=== PATIENT | female | born 1995 | race Two or more races ===

== ENCOUNTER 2016-08-22 16:25 | Emergency (ER) | payer BC ==
[2016-08-22 17:10] VITALS: BP 129/90
--- NOTE | 2016-08-22 17:32 | UC ---
Complaint Female HPI - HPI Summary HPI Summary: is here tonight seeking rx for bcp so when she goes on vacation she will not get her period. - History Of Current Complaint Chief Complaint: UCMedRefill Stated Complaint: CONTROL Time Seen by Provider: 08/22/16 17:14 Hx Obtained From: Patient Hx Last Menstrual Period: June ?: No Severity Currently: None Associated Signs And Symptoms: Positive: Negative - Allergies/Home Medications Allergies/Adverse Reactions: Allergies Allergy/AdvReac Type Severity Reaction Status Date / Time [place] Allergy Intermediate Rash Verified 01/24/14 10:11 Home Medications: Home Medications Amphetamine-Dextroamphetamine [Adderall 10 mg-] 08/22/16 [History] Bupropion XL (NF) [Wellbutrin XL (NF)] 300 mg PO DAILY 08/22/16 [History Confirmed 08/22/16] PMH/Surg Hx/FS Hx/Imm Hx Previously Healthy: Yes - Surgical History Surgical History: None - Family History Known Family History: Positive: None Family History: no reported cardio vascular issues in family lineage - Social History Occupation: Student Lives: With Family Alcohol Use: Weekly Substance Use Type: None Smoking Status (MU): Never Smoked Tobacco Review of Systems Constitutional: Negative Skin: Negative Eyes: Negative ENT: Negative Respiratory: Negative Cardiovascular: Negative Gastrointestinal: Negative Genitourinary: Negative Motor: Negative Neurovascular: Negative Musculoskeletal: Negative Neurological: Negative Psychological: Negative All Other Systems Reviewed And Are Negative: Yes Physical Exam Triage Information Reviewed: Yes Appearance: Well-Appearing, No Pain Distress, Well-Nourished Vital Signs: Initial Vital Signs Temp 98.2 F 08/22/16 17:04 Pulse 118 08/22/16 17:04 Resp 16 08/22/16 17:04 BP 129/90 08/22/16 17:04 Pulse Ox 100 08/22/16 17:04 Vital Signs Reviewed: Yes Eye Exam: Normal Eyes: Positive: Conjunctiva Clear ENT Exam: Normal ENT: Positive: Normal ENT inspection, Hearing grossly normal. Negative: Trismus , Muffled/hoarse voice Dental Exam: Normal Neck exam: Normal Neck: Positive: Supple, Nontender Respiratory Exam: Normal Respiratory: Positive: Chest non-tender, No respiratory distress, No accessory muscle use Cardiovascular Exam: Normal Cardiovascular: Positive: RRR, Pulses Normal, Brisk Capillary Refill Musculoskeletal Exam: Normal Neurological Exam: Normal Neurological: Positive: Alert, Muscle Tone Normal Psychological Exam: Normal Skin Exam: Normal Diagnostics - Laboratory Diagnostic Studies Completed/Ordered: u preg (-) Complaint Female Dx - Course Course Of Treatment: rx for microgestin. encouraged safe sex practices, follow with [facility] or pcp prn - Differential Dx/Diagnosis Differential Diagnosis/HQI/PQRI: Provider Diagnoses: prevention, health education Discharge - Discharge Plan Condition: Stable Disposition: HOME Prescriptions: Norethindrone Acet & Eth Estra [Microgestin 1.5/30 1.5-30 mg-Mcg] 1 tab PO SEE INSTRUCTIONS #1 kelsi Patient Education Materials: Safe Sex (ED) Referrals: Claudia Downey NP [Primary Care Provider] -
== END 2016-08-22 18:03 | disposition home or self-care (01) ==
LOC: UCEAST 16:25
DX: Z30.011 Encounter for initial prescription of contraceptive pills (principal)
CPT/HCPCS: 84702; 99212; G0463